=== PATIENT | male | born 1970 | race Caucasian/White ===

== ENCOUNTER 2016-06-13 14:21 | Emergency (ER) | payer SELFPAY ==
--- NOTE | 2016-06-13 15:14 | ED CLINICAL REPORT ---
Clinical Report - Physicians/Mid Levels [facility] [address] [place] [address] 06/13/2016 14:23 Patient: CHINYERE LIU Time Seen: 14:28 Jun 13 2016. Arrived- By private vehicle. HISTORY OF PRESENT ILLNESS Chief Complaint: COUGH and FEVER. This started 2 months and is still present. The patient has had sputum production and a cough. No sinus pressure. Additional history - No known contact with a sick individual. No recent travel. (Cough congestion over the last 2 months, worsening. No fevers. No chills. No hemoptysis. No acute weight loss. No arthralgias or myalgias.). REVIEW OF SYSTEMS No headache or vomiting. All systems otherwise negative, except as recorded above. SOCIAL HISTORY Second-hand smoke exposure. No alcohol use or drug use. ADDITIONAL NOTES The nursing notes have been reviewed. PHYSICAL EXAM Vital Signs: 06/13/2016 14:28 BP: 130/96. HR: 85. RR: 16. O2 saturation: 97%. Temp: 98.4 F. Pain level now: 0/10. Appearance: Alert. Eyes: Eyes normal inspection. ENT: Ears normal. Pharynx normal. Uvula midline. No mouth ulcerations or tonsillar exudate. Neck: Normal inspection. CVS: Normal heart rate and rhythm. Heart sounds normal. Respiratory: No respiratory distress. No respiratory distress. Wheezing present. No accessory muscle use. Abdomen: Soft. The bowel sounds are not abnormal. Skin: Normal skin color. LABS, X-RAYS, AND EKG Chest X-ray: (nad). PROGRESS AND PROCEDURES Course of Care: Patient here with improvement of wheezing after treatment. We'll treat for bronchitis. No tachypnea. No respiratory distress. No other systemic symptoms. Afebrile. 2 fall palpation. Patient is stable. Physical exam findings are improved. Symptoms better. Patient/family counseled. Differential Diagnosis: I considered viral bronchitis, laryngotracheobronchitis, viral pneumonia, bacterial bronchitis, bacterial tracheobronchitis, bacterial pneumonia, mycoplasmal bronchitis, bronchospasm, allergic bronchospasm, irritant bronchospasm, lung cancer, pulmonary embolism and adverse drug reaction as a possible cause of cough in this patient. This is a partial list of diagnoses considered. Disposition: Discharged. CLINICAL IMPRESSION Acute bronchitis. INSTRUCTIONS ([facility]: Address: [place] [address] ). Warnings: Further evaluation is necessary. Prescription Medications: Albuterol HFA oral inhaler: inhale 1 to 2 puffs every four to six hours as needed for difficulty breathing. Dispense one (1) unit. No refills. Prednisone 20 mg: take 3 orally every day for 5 days. Dispense fifteen (15). No refills. Robitussin A-C cough syrup take one (1) teaspoon orally as needed for cough for 3 days. Dispense sixty (60) mL. No refill. Substitution is permissible. Zithromax 250 mg tablets: take 2 orally today, followed by 1 daily for the next 4 days. No refills. Substitution is permissible. (Electronically signed by Keila Medellin P.A.-C 06/13/2016 16:02)
--- NOTE | 2016-06-13 15:14 | ED CLINICAL REPORT ---
Clinical Report - Physicians/Mid Levels [facility] [address] [place] [address] 06/13/2016 14:23 Patient: CHINYERE LIU Time Seen: 14:28 Jun 13 2016. Arrived- By private vehicle. HISTORY OF PRESENT ILLNESS Chief Complaint: COUGH and FEVER. This started 2 months and is still present. The patient has had sputum production and a cough. No sinus pressure. Additional history - No known contact with a sick individual. No recent travel. (Cough congestion over the last 2 months, worsening. No fevers. No chills. No hemoptysis. No acute weight loss. No arthralgias or myalgias.). REVIEW OF SYSTEMS No headache or vomiting. All systems otherwise negative, except as recorded above. SOCIAL HISTORY Second-hand smoke exposure. No alcohol use or drug use. ADDITIONAL NOTES The nursing notes have been reviewed. PHYSICAL EXAM Vital Signs: 06/13/2016 14:28 BP: 130/96. HR: 85. RR: 16. O2 saturation: 97%. Temp: 98.4 F. Pain level now: 0/10. Appearance: Alert. Eyes: Eyes normal inspection. ENT: Ears normal. Pharynx normal. Uvula midline. No mouth ulcerations or tonsillar exudate. Neck: Normal inspection. CVS: Normal heart rate and rhythm. Heart sounds normal. Respiratory: No respiratory distress. No respiratory distress. Wheezing present. No accessory muscle use. Abdomen: Soft. The bowel sounds are not abnormal. Skin: Normal skin color. LABS, X-RAYS, AND EKG Chest X-ray: (nad). PROGRESS AND PROCEDURES Course of Care: Patient here with improvement of wheezing after treatment. We'll treat for bronchitis. No tachypnea. No respiratory distress. No other systemic symptoms. Afebrile. 2 fall palpation. Patient is stable. Physical exam findings are improved. Symptoms better. Patient/family counseled. Differential Diagnosis: I considered viral bronchitis, laryngotracheobronchitis, viral pneumonia, bacterial bronchitis, bacterial tracheobronchitis, bacterial pneumonia, mycoplasmal bronchitis, bronchospasm, allergic bronchospasm, irritant bronchospasm, lung cancer, pulmonary embolism and adverse drug reaction as a possible cause of cough in this patient. This is a partial list of diagnoses considered. Disposition: Discharged. CLINICAL IMPRESSION Acute bronchitis. INSTRUCTIONS ([facility]: Address: [place] [address] ). Warnings: Further evaluation is necessary. Prescription Medications: Albuterol HFA oral inhaler: inhale 1 to 2 puffs every four to six hours as needed for difficulty breathing. Dispense one (1) unit. No refills. Prednisone 20 mg: take 3 orally every day for 5 days. Dispense fifteen (15). No refills. Robitussin A-C cough syrup take one (1) teaspoon orally as needed for cough for 3 days. Dispense sixty (60) mL. No refill. Substitution is permissible. Zithromax 250 mg tablets: take 2 orally today, followed by 1 daily for the next 4 days. No refills. Substitution is permissible. (Electronically signed by Keila Medellin P.A.-C 06/13/2016 16:02)
--- NOTE | 2016-06-13 15:14 | ED ORDER SUMMARY ---
..... Patient: CHINYERE LIU OrderSheet [facility] VisitID: [id number] [address] [place] [address] 45y, M Registration Date/Time: 06/13/2016 ORDER SHEET Weight: 87.9 kg (stated) Allergies: No Known Drug Allergy GENERAL ORDERS: Chest 2V Urgent (14:34 06/13/2016 Abilio P.A.-C) (Ack 14:37 LTapper) (15:01 LTapper) MEDICATION ORDERS: DuoNeb Neb Tx 1 unit dose (NOW) (14:35 06/13/2016 Abilio P.A.-C) (14:44 Yakov) IV FLUIDS: ORDER SHEET NOTES: [Electronically signed by Alexi De La Paz R.N. (15:31 06/13/2016)] [Electronically signed by Keila Medellin P.A.-C (16:02 06/13/2016)] [Electronically locked/signed by Alexi De La Paz R.N. (15:31 06/13/2016)]
--- NOTE | 2016-06-13 15:14 | ED NURSING NOTES ---
Clinical Report - Nurses [facility] [place] [address] [place] [address] 06/13/2016 14:23 Patient: CHINYERE LIU TRIAGE Triage time 14:28. Acuity: LEVEL 4. Chief Complaint: (Cough & SOB after drinking cold water. Onset 2 months ago, getting worse. Denies fever. After taking a dep breath he has a wheezy cough.). 14:36 06/13/16. KHADIJAH COMA SCORE: [place] Coma Scale: 15- eyes open spontaneously (4); best verbal response- oriented x 4 (5); best motor response- obeys commands (6). --14:36 Alexi De La Paz R.N. 14:28 06/13/16. BP: 130/96. HR: 85. RR: 16. O2 saturation: 97% on room air. Temp: 98.4 F (oral). Pain level now: 0/10. --14:36 Alexi De La Paz R.N. Weight: 87.9 kg stated. Height/Length: 67 inches Per Patient. BMI: 30.4. --14:33 Alexi De La Paz R.N. Medications None. --14:31 Alexi De La Paz R.N. Allergies No Known Drug Allergy. --14:31 Alexi De La Paz R.N. History Arrived by private vehicle. 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 SOCIAL HX: Never smoker. Occasional alcohol use. No drug use. ABUSE ASSESSMENT: No report of abuse. --14:36 Alexi De La Paz R.N. ADDITIONAL SURGERIES: Carpal Tunnel Surgery. Shoulder Surgery. --14:31 Alexi De La Paz R.N. Interventions ID band on patient. To treatment room. --14:36 Alexi De La Paz R.N. PHYSICAL ASSESSMENT 14:39 06/13/16. Ambulatory to room. GENERAL / NEURO / PSYCH: Alert. Oriented X 4. Appears in no acute distress. HEENT: Pupils equal, round and reactive to light. No facial asymmetry noted. Mucous membranes are pink. RESPIRATORY: Mild respiratory distress. The patient can speak a few words at a time. Nonproductive cough. Expiratory bilateral wheezes present. CVS: Capillary refill less than 2 seconds. Pulses within normal limits. GI / : Abdomen soft and nontender and normal bowel sounds. SKIN: Skin intact. Skin is warm and dry. Normal skin turgor. --14:39 Alexi De La Paz R.N. NURSING PROGRESS NOTES 14:39 06/13/16. Reassurance given. Two patient identifiers checked. Call light placed in reach. Bed placed in lowest position. Brakes of bed on. Patient ready for evaluation- chart flagged. --14:39 Alexi De La Paz R.N. 14:44 06/13/2016 Duoneb (Ipratropium-Albuterol) Neb TX Nebulizer 1 unit dose given. Given by the respiratory therapist. Allergies verified and confirmed 5 rights. --14:44 Adriana Ness <<STRICMANDIE ENTRY-- 14:45. Checked patient name, birthdate and medical record number: patient confirmed. Instructions provided to collect clean catch urine and patient verbalized understanding. Clean catch urine collected with return of yellow-colored clear urine; odor is normal; sample sent to lab for urinalysis and culture. Specimen labeled in the presence of the patient. --15:11 Jeffrey Verde R.N. --END STRIKE>> Charted On Wrong Patient --15:11 Jeffrey Verde R.N. DISPOSITION / DISCHARGE 15:29 06/13/16. Departure time: 1528. Condition at departure: improved and stable. No learning barriers present. Discharge instructions provided and reviewed with the patient. Reviewed warnings. Reviewed medication(s). Patient verbalized understanding. Written instructions provided in Turkish. The patient was discharged by the physician. He was discharged home and accompanied by family. He left the Emergency Department ambulatory and via private vehicle. Patient driving. --15:30 Alexi De La Paz R.N. 15:25 06/13/16. BP: 122/69. HR: 85. RR: 24. O2 saturation: 99% on room air. Temp: 98.5 F (oral). Pain level now: 010. --15:30 Alexi De La Paz R.N. Locked/Released at 06/13/2016 15:31 by Alexi De La Paz R.N.
--- NOTE | 2016-06-13 15:14 | ED ORDER SUMMARY ---
..... Patient: CHINYERE LIU OrderSheet [facility] VisitID: [id number] [address] [place] [address] 45y, M Registration Date/Time: 06/13/2016 ORDER SHEET Weight: 87.9 kg (stated) Allergies: No Known Drug Allergy GENERAL ORDERS: Chest 2V Urgent (14:34 06/13/2016 Abilio P.A.-C) (Ack 14:37 LTapper) (15:01 LTapper) MEDICATION ORDERS: DuoNeb Neb Tx 1 unit dose (NOW) (14:35 06/13/2016 Abilio P.A.-C) (14:44 Yakov) IV FLUIDS: ORDER SHEET NOTES: [Electronically signed by Alexi De La Paz R.N. (15:31 06/13/2016)] [Electronically signed by Keila Medellin P.A.-C (16:02 06/13/2016)] [Electronically locked/signed by Alexi De La Paz R.N. (15:31 06/13/2016)]
--- NOTE | 2016-06-13 15:14 | ED NURSING NOTES ---
Clinical Report - Nurses [facility] [place] [address] [place] [address] 06/13/2016 14:23 Patient: CHINYERE LIU TRIAGE Triage time 14:28. Acuity: LEVEL 4. Chief Complaint: (Cough & SOB after drinking cold water. Onset 2 months ago, getting worse. Denies fever. After taking a dep breath he has a wheezy cough.). 14:36 06/13/16. KHADIJAH COMA SCORE: [place] Coma Scale: 15- eyes open spontaneously (4); best verbal response- oriented x 4 (5); best motor response- obeys commands (6). --14:36 Alexi De La Paz R.N. 14:28 06/13/16. BP: 130/96. HR: 85. RR: 16. O2 saturation: 97% on room air. Temp: 98.4 F (oral). Pain level now: 0/10. --14:36 Alexi De La Paz R.N. Weight: 87.9 kg stated. Height/Length: 67 inches Per Patient. BMI: 30.4. --14:33 Alexi De La Paz R.N. Medications None. --14:31 Alexi De La Paz R.N. Allergies No Known Drug Allergy. --14:31 Alexi De La Paz R.N. History Arrived by private vehicle. 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 SOCIAL HX: Never smoker. Occasional alcohol use. No drug use. ABUSE ASSESSMENT: No report of abuse. --14:36 Alexi De La Paz R.N. ADDITIONAL SURGERIES: Carpal Tunnel Surgery. Shoulder Surgery. --14:31 Alexi De La Paz R.N. Interventions ID band on patient. To treatment room. --14:36 Alexi De La Paz R.N. PHYSICAL ASSESSMENT 14:39 06/13/16. Ambulatory to room. GENERAL / NEURO / PSYCH: Alert. Oriented X 4. Appears in no acute distress. HEENT: Pupils equal, round and reactive to light. No facial asymmetry noted. Mucous membranes are pink. RESPIRATORY: Mild respiratory distress. The patient can speak a few words at a time. Nonproductive cough. Expiratory bilateral wheezes present. CVS: Capillary refill less than 2 seconds. Pulses within normal limits. GI / : Abdomen soft and nontender and normal bowel sounds. SKIN: Skin intact. Skin is warm and dry. Normal skin turgor. --14:39 Alexi De La Paz R.N. NURSING PROGRESS NOTES 14:39 06/13/16. Reassurance given. Two patient identifiers checked. Call light placed in reach. Bed placed in lowest position. Brakes of bed on. Patient ready for evaluation- chart flagged. --14:39 Alexi De La Paz R.N. 14:44 06/13/2016 Duoneb (Ipratropium-Albuterol) Neb TX Nebulizer 1 unit dose given. Given by the respiratory therapist. Allergies verified and confirmed 5 rights. --14:44 Adriana Ness <<STRICMANDIE ENTRY-- 14:45. Checked patient name, birthdate and medical record number: patient confirmed. Instructions provided to collect clean catch urine and patient verbalized understanding. Clean catch urine collected with return of yellow-colored clear urine; odor is normal; sample sent to lab for urinalysis and culture. Specimen labeled in the presence of the patient. --15:11 Jeffrey Verde R.N. --END STRIKE>> Charted On Wrong Patient --15:11 Jeffrey Verde R.N. DISPOSITION / DISCHARGE 15:29 06/13/16. Departure time: 1528. Condition at departure: improved and stable. No learning barriers present. Discharge instructions provided and reviewed with the patient. Reviewed warnings. Reviewed medication(s). Patient verbalized understanding. Written instructions provided in Macedonian. The patient was discharged by the physician. He was discharged home and accompanied by family. He left the Emergency Department ambulatory and via private vehicle. Patient driving. --15:30 Alexi De La Paz R.N. 15:25 06/13/16. BP: 122/69. HR: 85. RR: 24. O2 saturation: 99% on room air. Temp: 98.5 F (oral). Pain level now: 010. --15:30 Alexi De La Paz R.N. Locked/Released at 06/13/2016 15:31 by Alexi De La Paz R.N.
--- NOTE | 2016-06-13 16:03 | ED MED RECONCILIATION SUMMARY ---
Patient: SANJAY LIUJANDRO Medication Reconciliation Report [facility] VisitID: [id number] [address] [place] [address] 45y, M Registration Date/Time: 06/13/2016 Weight: 87.9 kg Height/Length: 67 in. BMI: 30.4 ALLERGIES: No Known Drug Allergy The patient's Home Medications are listed below: NONE. The source(s) of the original Home Medication information: Not obtained. The following Medications were given to the patient in the Emergency Department: Duoneb [Neb Tx] Neb TX 1 unit dose, administered: 06/13/2016 2:44:00 PM The following Medications were prescribed to the patient: Albuterol HFA oral inhaler: inhale 1 to 2 puffs every four to six hours as needed for difficulty breathing. Dispense one (1) unit. No refills. -- Keila Medellin, P.A.-C Prednisone 20 mg: take 3 orally every day for 5 days. Dispense fifteen (15). No refills. -- Keila Medellin, P.A.-C Robitussin A-C cough syrup take one (1) teaspoon orally as needed for cough for 3 days. Dispense sixty (60) mL. No refill. Substitution is permissible. -- Keila Medellin, P.A.-C Zithromax 250 mg tablets: take 2 orally today, followed by 1 daily for the next 4 days. No refills. Substitution is permissible. -- Keila Medellin, P.A.-C
--- NOTE | 2016-06-13 16:03 | ED MAR SUMMARY ---
..... Medication Administration Record [address] [place] [address] Patient: CHINYERE LIU Visit ID: [id number] 45y, M Weight: 87.9 kg Height/Length: 67 in BMI: 30.4 ALLERGIES: No Known Drug Allergy Given 14:44 06/13/2016 Adriana Ness, Medication Administered: DUONEB [NEB TX] (IPRATROPIUM-ALBUTEROL), Dose: 1 unit dose Nebulizer Neb TX. Medication Ordered: DuoNeb Neb Tx 1 unit dose (NOW).
--- NOTE | 2016-06-13 16:03 | ED MED RECONCILIATION SUMMARY ---
Patient: SANJAY LIUJANDRO Medication Reconciliation Report [facility] VisitID: [id number] [address] [address] 45y, M Registration Date/Time: 06/13/2016 Weight: 87.9 kg Height/Length: 67 in. BMI: 30.4 ALLERGIES: No Known Drug Allergy The patient's Home Medications are listed below: NONE. The source(s) of the original Home Medication information: Not obtained. The following Medications were given to the patient in the Emergency Department: Duoneb [Neb Tx] Neb TX 1 unit dose, administered: 06/13/2016 2:44:00 PM The following Medications were prescribed to the patient: Albuterol HFA oral inhaler: inhale 1 to 2 puffs every four to six hours as needed for difficulty breathing. Dispense one (1) unit. No refills. -- Keila Medellin, P.A.-C Prednisone 20 mg: take 3 orally every day for 5 days. Dispense fifteen (15). No refills. -- Keila Medellin, P.A.-C Robitussin A-C cough syrup take one (1) teaspoon orally as needed for cough for 3 days. Dispense sixty (60) mL. No refill. Substitution is permissible. -- Keila Medellin, P.A.-C Zithromax 250 mg tablets: take 2 orally today, followed by 1 daily for the next 4 days. No refills. Substitution is permissible. -- Keila Medlelin, P.A.-C
--- NOTE | 2016-06-13 16:03 | ED DISCHARGE INSTRUCTIONS ---
Patient: CHINYERE LIU General Instructions [facility] VisitID: [id number] [place] [address] 45y, M Registration Date/Time: 06/13/2016 Acute bronchitis. INSTRUCTIONS ([facility]: Address: [address] [place] [address] ). Warnings: Further evaluation is necessary. Prescription Medications: Albuterol HFA oral inhaler: inhale 1 to 2 puffs every four to six hours as needed for difficulty breathing. Dispense one (1) unit. No refills. Prednisone 20 mg: take 3 orally every day for 5 days. Dispense fifteen (15). No refills. Robitussin A-C cough syrup take one (1) teaspoon orally as needed for cough for 3 days. Dispense sixty (60) mL. No refill. Substitution is permissible. Zithromax 250 mg tablets: take 2 orally today, followed by 1 daily for the next 4 days. No refills. Substitution is permissible. ADDITIONAL INFORMATION Bronchitis (Adult: Abx Tx) BRONCHITIS is an infection of the air passages (bronchial tubes). It often occurs during the common cold. Symptoms include cough with mucus (phlegm) and low-grade fever. Bronchitis usually lasts 7-14 days. Mild cases can be treated with simple home remedies. More severe infection is treated with an antibiotic. Home Care: If symptoms are severe, rest at home for the first 2-3 days. When you resume activity, don't let yourself get too tired. Do not smoke. Avoid being exposed to the smoke of others. You may use acetaminophen (Tylenol) or ibuprofen (Motrin, Advil) to control fever or pain, unless another medicine was prescribed for this. [NOTE: If you have chronic liver or kidney disease or ever had a stomach ulcer or GI bleeding, talk with your doctor before using these medicines.] Your appetite may be poor, so a light diet is fine. Avoid dehydration by drinking 6-8 glasses of fluids per day (water, soft, drinks, juices, tea, soup, etc.). Extra fluids will help loosen secretions in the lungs. [id number] cough medicines that containdextromethorphan(such as Robitussin DM) and decongestants (Actifed or Sudafed) may help relieve cough and congestion. [NOTE: Do not use decongestants if you have high blood pressure.] Finish all antibiotic medicine, even if you are feeling better after only a few days. Follow Up with your doctor or as directed if you dont start to feel better after three days. [NOTE: If you are age 65 or older, or if you have chronic asthma or COPD, we recommend a PNEUMOCOCCAL VACCINATION every five years and a yearly INFLUENZAVACCINATION (FLU-SHOT) every . Ask your doctor about this. If you had an X-ray, a radiologist will review it. You will be notified of any new findings that may affect your care.] Get Prompt Medical Attention if any of the following occur: Fever over 100.4F (38.0C) for more than three days Trouble breathing, wheezing or pain with breathing Coughing up blood or increased amounts of colored sputum Weakness, drowsiness, headache, facial pain, ear pain or a stiff neck You have been given the following additional information: Bronchitis, Antiobiotic Treatment (Adult) (Electronically signed by Keila Medellin P.A.-C 06/13/2016 16:02)
--- NOTE | 2016-06-13 16:03 | ED MAR SUMMARY ---
..... Medication Administration Record [address] [place] [address] Patient: CHINYERE LIU Visit ID: [id number] 45y, M Weight: 87.9 kg Height/Length: 67 in BMI: 30.4 ALLERGIES: No Known Drug Allergy Given 14:44 06/13/2016 Adriana Ness, Medication Administered: DUONEB [NEB TX] (IPRATROPIUM-ALBUTEROL), Dose: 1 unit dose Nebulizer Neb TX. Medication Ordered: DuoNeb Neb Tx 1 unit dose (NOW).
--- NOTE | 2016-06-13 16:03 | ED DISCHARGE INSTRUCTIONS ---
Patient: CHINYERE LIU General Instructions [facility] VisitID: [id number] [place] [address] 45y, M Registration Date/Time: 06/13/2016 Acute bronchitis. INSTRUCTIONS ([facility]: Address: [address] [place] [address] ). Warnings: Further evaluation is necessary. Prescription Medications: Albuterol HFA oral inhaler: inhale 1 to 2 puffs every four to six hours as needed for difficulty breathing. Dispense one (1) unit. No refills. Prednisone 20 mg: take 3 orally every day for 5 days. Dispense fifteen (15). No refills. Robitussin A-C cough syrup take one (1) teaspoon orally as needed for cough for 3 days. Dispense sixty (60) mL. No refill. Substitution is permissible. Zithromax 250 mg tablets: take 2 orally today, followed by 1 daily for the next 4 days. No refills. Substitution is permissible. ADDITIONAL INFORMATION Bronchitis (Adult: Abx Tx) BRONCHITIS is an infection of the air passages (bronchial tubes). It often occurs during the common cold. Symptoms include cough with mucus (phlegm) and low-grade fever. Bronchitis usually lasts 7-14 days. Mild cases can be treated with simple home remedies. More severe infection is treated with an antibiotic. Home Care: If symptoms are severe, rest at home for the first 2-3 days. When you resume activity, don't let yourself get too tired. Do not smoke. Avoid being exposed to the smoke of others. You may use acetaminophen (Tylenol) or ibuprofen (Motrin, Advil) to control fever or pain, unless another medicine was prescribed for this. [NOTE: If you have chronic liver or kidney disease or ever had a stomach ulcer or GI bleeding, talk with your doctor before using these medicines.] Your appetite may be poor, so a light diet is fine. Avoid dehydration by drinking 6-8 glasses of fluids per day (water, soft, drinks, juices, tea, soup, etc.). Extra fluids will help loosen secretions in the lungs. [id number] cough medicines that containdextromethorphan(such as Robitussin DM) and decongestants (Actifed or Sudafed) may help relieve cough and congestion. [NOTE: Do not use decongestants if you have high blood pressure.] Finish all antibiotic medicine, even if you are feeling better after only a few days. Follow Up with your doctor or as directed if you dont start to feel better after three days. [NOTE: If you are age 65 or older, or if you have chronic asthma or COPD, we recommend a PNEUMOCOCCAL VACCINATION every five years and a yearly INFLUENZAVACCINATION (FLU-SHOT) every . Ask your doctor about this. If you had an X-ray, a radiologist will review it. You will be notified of any new findings that may affect your care.] Get Prompt Medical Attention if any of the following occur: Fever over 100.4F (38.0C) for more than three days Trouble breathing, wheezing or pain with breathing Coughing up blood or increased amounts of colored sputum Weakness, drowsiness, headache, facial pain, ear pain or a stiff neck You have been given the following additional information: Bronchitis, Antiobiotic Treatment (Adult) (Electronically signed by Keila Medellin P.A.-C 06/13/2016 16:02)
--- NOTE | 2016-06-13 16:47 | DIAGNOSTIC IMAGING REPORT ---
PROCEDURE: XR CHEST 2 VIEW INDICATION: FEVER TECHNIQUE: PA and lateral views. COMPARISON: None. FINDINGS: Lungs are clear. Heart and mediastinum are normal. Thorax is normal. IMPRESSION: 1. Negative chest.
== END 2016-06-13 15:28 | disposition home or self-care (01) ==
LOC: ED SRH 14:21
DX: J20.9 Acute bronchitis, unspecified (principal); Z77.22 Contact with and (suspected) exposure to environmental tobacco smoke (acute) (chronic)